=== PATIENT | male | born 1940 | race Caucasian/White ===

== ENCOUNTER 2019-05-26 06:00 | Outpatient (RCR) | payer MEDICARE, OTHER, SELFPAY | END 2019-06-24 23:59 | disposition home or self-care (01) | LOC: MOT 06:00 | PROVIDERS: PCP Family Medicine; Referring Provider Family Medicine; Visit Provider Family Medicine | DX: M19.041 Primary osteoarthritis, right hand (principal) | CPT/HCPCS: 97018; 97110; 97140; 97166 ==

== ENCOUNTER 2019-06-28 | Outpatient (RCR) | payer MEDICARE, OTHER, SELFPAY | END 2019-07-21 | disposition home or self-care (01) | LOC: MOT | PROVIDERS: PCP Family Medicine; Referring Provider Family Medicine; Visit Provider Family Medicine | DX: M19.041 Primary osteoarthritis, right hand (principal) | CPT/HCPCS: 97018; 97022; 97035; 97110; 97140 ==

== ENCOUNTER 2019-08-02 | Outpatient (RCR) | payer MEDICARE, OTHER, SELFPAY | END 2019-08-02 23:00 | disposition home or self-care (01) | LOC: MOT | PROVIDERS: PCP Family Medicine; Referring Provider Family Medicine; Visit Provider Family Medicine | DX: M19.041 Primary osteoarthritis, right hand (principal) | CPT/HCPCS: 97022; 97110; 97140 ==

== ENCOUNTER → 2020-12-04 10:35 | Outpatient (BNVA) | payer MEDICARE, OTHER, SELFPAY | PROVIDERS: PCP Family Medicine; Visit Provider Specialist | DX: Z20.822 Contact with and (suspected) exposure to COVID-19 (principal) | CPT/HCPCS: 87635 ==

== ENCOUNTER 2020-12-08 07:28 | Day surgery (SDC) | payer MEDICARE, OTHER, SELFPAY ==
[2020-12-07 12:56] VITALS: BMI 25.4
[2020-12-08] VITALS (8 sets, daily range): BP systolic 112–145; BP diastolic 58–82; PULSE 52–67; RESP 12–20; TEMP 35.8–36.4; O2SAT 94–100
--- NOTE | 2020-12-08 | XR_ITS ---
WS: [id number] XR ankle RT 2V 18342 REASON FOR EXAM: OR PICS FINDINGS: Prefixation and AP and lateral post fixation images during surgery. Oblique fracture of the distal right fibula extending into the syndesmosis. Widening of the medial an kle joint. Fixation of the fibular fracture with plate and screws. Transverse transfibular/tibial anchor with jewish of normal medial ankle joint space. Surgical appliances and fracture fragments in proper position and alignment. XR/XR ankle RT 2V 79854 IMPRESSION: Fixation of right ankle fracture as above.
--- NOTE | 2020-12-08 | SCC_ITS ---
Procedure Done: Open reduction internal fixation right distal fibula fracture with syndesmotic fixation 116.3 seconds of fluoroscopic guidance, for a cumulative dose of 4.04 mGy, was provided to Dr. Sharpe by the radiology department. C-arm images of the RIGHT ankle were saved for the patient's permanent record. [facility]
--- NOTE | 2020-12-08 07:55 | P.HPUD_ITS ---
Surgery/Procedure H&P Update DATE OF PROCEDURE: December 08, 2020 DATE H&P PERFORMED: 12/04/20 H&P UPDATE INFORMATION: I have reviewed H&P completed within last 30 days, I have examined patient prior to procedure, No changes to prior documentation and H&P is in [facility] [place] on date indicated PREOP DIAGNOSIS: Right bimalleolar ankle fracture PLANNED PROCEDURE: Operation Date: 12/08/20 09:10 Proposed Procedures p ORIF Fibula w/ poss Syndosmotic fixation 88255 44726 S82.841A S93.431A(Right) - Janeth Sharpe MD Related Problem List Diagnoses (1) Closed bimalleolar fracture of right ankle: Qualifiers: Encounter type: initial encounter Qualified Code(s): S82.841A - Displaced bimalleolar fracture of right lower leg, initial encounter for closed fracture (2) Syndesmotic disruption of right ankle: Qualifiers: Encounter type: initial encounter Qualified Code(s): S93.431A - Sprain of tibiofibular ligament of right ankle, initial encounter
[2020-12-08] MEDS: acetaminophen 1,000 MG/100 ML PIGGYBACK 400 MG IV (08:25)
[2020-12-08] MEDS: CELEcoxib 100 mg Capsule 400 MG PO (08:32)
--- NOTE | 2020-12-08 08:47 | ANES.PREANE2 ---
Pre-Anesthetic Assessment Pre-Anesthetic Assessment: Height/Weight: Height 1.75 m Weight 78.018 kg Preop Diagnosis: Right bimalleolar ankle fracture Proposed Procedure: Operation Date: 12/08/20 09:10 Proposed Procedures p ORIF Fibula w/ poss Syndosmotic fixation 35984 20876 S82.841A S93.431A(Right) - Janeth Sharpe MD Familial anesthetic complications: None Was Beta Reginald taken within 24 hours: Yes Was Clonidine taken within 24 hours: N/A Last intake: Intake Last Liquid Date 12/07/20 Last Liquid Time 22:00 Last Solid Date 12/07/20 Last Solid Time 19:00 Social: Social History: No alcohol and No tobacco Exam: Pre-Anes Outpt Exam: alert, oriented x 3, clear to auscultation bilaterally and regular rate & rhythm Airway: Cervical ROM: WNL MP: 3 Dentition: False Anesthetic Plan: ASA status: 3 Anesthesia: General and Regional (specify below) (popliteal) Risk of > 500 ml blood loss (7ml/kg in children): No PFSH Anesthesia PFSH: Medical History Hyperlipidemia Hypertension Peripheral neuropathy Polymyalgia Polyneuropathy Surgical History History of cataract extraction History of tonsillectomy and adenoidectomy Social History Smoking and tobacco status: former smoker Data Anesthesia Cardiac Studies: No Data to Display
--- NOTE | 2020-12-08 08:50 | ANES.PROC ---
Anesthesia Procedures Procedure/Date: 12/08/20 Nerve Block ^: Nerve Block 1: Main Anesthesia: general anesthesia Time Out Performed: Yes Consent: requested by attending/covering physician, from patient, from other, risks and benefits reviewed and patient agrees to proceed Nerve block location: popliteal (R) Anesthesia monitors applied: pulse oximetry, EKG, BP cuff and oxygen Nerve block position: supine Anesthetic Used: ropivicaine 0.5% and with decadron (4 mg) Amount of anesthesia used (mL): 30 Ultrasound used to: recognize landmarks Nerve Stimulator Used?: No Interscalene/Femoral BLK: 4 stimuplex 21 g needle used for position and inplane approach, visualize local anesthetic spread and no vascular puncture identified Injection: neg aspiration of heme and paresthesia +/- Patient Tolerated Procedure: well and no complications Complications: none
[2020-12-08] MEDS: sodium chloride 0.9% 1,000 ML 30 ML IV (09:00)
--- NOTE | 2020-12-08 09:10 | PC.NURSE ---
nerve block done without moderate sedations. pt stated no pain in procedure or with ankle fracture since it got broken
[2020-12-08 10:03] LABS: Basophils % 0.5 %; Eosinophils # 0.2 10^3/uL (0.0-0.8); Eosinophils % 2.4 %; Hematocrit 39.1 % (42.0-52.0); Hemoglobin 13.5 g/dL (11.7-16.6); Lymphocytes # 1.4 10^3/uL (0.8-4.8); Lymphocytes % 16.7 %; Mean Corpuscular HGB Conc 34.5 g/dL (30.0-36.0); Mean Corpuscular Hemoglobin 30.7 pg (28.0-34.0); Mean Corpuscular Volume 88.9 fl (80-94); Mean Platelet Volume 10.9 fL (7.4-10.4); Monocytes # 1.1 10^3/uL (0.2-0.9); Monocytes % 13.2 %; Neutrophils # 5.56 10^3/uL (1.8-7.7); Nucleated Red Blood Cells % 0 %; Platelet Count 275 10^3/cmm (130-400); Red Cell Distribution Width 12.8 % (12.1-15.1); White Blood Count 8.3 10^3/uL (4.0-10.0)
[2020-12-08] MEDS: ceFAZolin 1,000 mg SDV 1000 MG IRRIGATION (10:37)
[2020-12-08 10:40] LABS: Alanine Aminotransferase 20 U/L (0-41); Albumin Level 4.1 g/dL (3.5-5.2); Alkaline Phosphatase 77 IU/L (40-130); Anion Gap 15.3 (5-19); Aspartate Amino Transferase 21 U/L (0-40); Blood Urea Nitrogen 13 mg/dL (8-23); Calcium 9.4 mg/dL (8.5-10.5); Carbon Dioxide 28 mmol/L (22-29); Chloride 92 mmol/L (98-107); Globulin 2.9 g/dL (1.3-4.6); Glucose 101 mg/dL (65-115); Osmolality Calculated 274 mOsm/kg (285-295); Potassium 3.3 mmol/L (3.5-5.1); Sodium 132 mmol/L (136-145); Total Bilirubin 0.6 mg/dL (0.15-1.2)
--- NOTE | 2020-12-08 12:12 | PM.OP ---
Operative Report Date of procedure: December 08, 2020 Pre-op Diagnosis: Right bimalleolar ankle fracture with syndesmotic disruption Post-op diagnosis: same Post-op Findings: Distal right fibular fracture with disruption of the deltoid ligament and syndesmotic disruption Procedure Done: Open reduction internal fixation right distal fibula fracture with syndesmotic fixation Implants: The Bernie 5 hole distal lateral fibular plate with Arthrex tight rope x1 Pathology: none sent Surgeon: Janeth Sharpe Air Duct Mechanic: [facility] operating room technicians Anesthesia: General (Intubated, ASA 3) Estimated blood loss (mL): 20 Tourniquet time (min): 69 Tourniquet time: At 250 mmHg IV fluids (mL): 900 Urine output (mL): 0 Urine output: No Tan Complications: None Findings: Opening of the medial mortise with stress following repair of the distal fibula Condition: stable Disposition: PACU (Then to same-day surgery for discharge to home) Brief History: This 80-year-old gentleman was in his usual state of health when he fell suffering the above injury. He was seen at [facility] and [place]. The patient was found to have a distal fibula fracture with opening of the medial mortise. Therefore, he was felt preoperatively to have a bimalleolar construct to his ankle fracture with syndesmotic disruption a high possibility. The patient was scheduled for the above procedure. Risks and complications were discussed with him. Consents were signed preoperatively. Procedure: Patient was seen in the preoperative holding area and his leg was marked. Patient was brought to the operating theater and placed on the operating room table. After undergoing adequate general intubated anesthesia, ASA 3, the patient's right lower extremity was prepped and draped in usual fashion utilizing DuraPrep. The leg was draped free. Fluoroscopy was used throughout the surgical procedure. We did have a tourniquet high on the right lower extremity. This was elevated to 250 mmHg and total tourniquet time was 69 minutes. Tourniquet elevation followed exsanguination of the leg. A surgical pause was performed. At the time of the surgical pause we identified the site and side of surgery as well as the patient's identity and availability of equipment. We also confirmed appropriate administration of IV antibiotics. Following the above, an incision was made centering over the patient's distal fibula fracture. The incision was continued proximally and distally as necessary to allow access to the fracture and placed the plate. Prior to surgical incision, a plate was chosen based upon fluoroscopic guidance in the position of the fracture. This was the plate we subsequently used. We were able to reduce the fracture anatomically. A Bernie 5 hole distal lateral fibular plate was attached with standard technique. We used locking screws to attach the plate. Once the plate was appropriately attached, fluoroscopy was used to evaluate for opening of the medial mortise. A stress image was obtained which demonstrated the mortise opened with stress. Therefore, the decision was made to place 1 tight rope anchor. This was placed under standard technique. The ankle was held in a reduced position while the tight rope was placed and tightened. Reevaluation with stress view demonstrated the medial mortise no longer opened. At this point, we were ready to address closure. The wound was copiously irrigated and dried. We then closed the wound with 0 Vicryl in the fascial tissues, 2-0 Monocryl in the subcutaneous tissues, and the skin was closed with skin vishal. Sterile dressing was then placed consisting of an OpSite, ABD, sterile soft roll, and an Deshawn wrap. The patient had been issued a cam walker boot at [facility], and this was used postoperatively for immobilization. He is to remain nonweightbearing. The procedure was well tolerated without complication. Tourniquet time was 69 minutes at 250 mmHg. The patient will be discharged home to follow-up in my office as scheduled. Associated Problem List Diagnoses (1) Syndesmotic disruption of right ankle: Qualifiers: Encounter type: initial encounter Qualified Code(s): S93.431A - Sprain of tibiofibular ligament of right ankle, initial encounter (2) Closed bimalleolar fracture of right ankle: Qualifiers: Encounter type: initial encounter Qualified Code(s): S82.841A - Displaced bimalleolar fracture of right lower leg, initial encounter for closed fracture
[2020-12-08] MEDS: fentaNYL 50 mcg/mL INJ 2mL IVP ×2 (12:15→12:20)
[2020-12-08] MEDS: HYDROcodone-acetaminophen 5-325 mg Tablet 1 TAB PO (12:59)
--- NOTE | 2020-12-08 14:29 | ANE.PACU2 ---
Inpatient post-anesthesia follow up: Airway intact: Yes Vital signs: Temperature 96.5 F Pulse Rate 52 Respiratory Rate 17 Blood Pressure 112/71 Pulse Oximetry 95 Oxygen Delivery Me thod Room Air Oxygen Flow Rate Fraction of Inspir ed Oxygen Hydration adequate: Yes Nausea and vomiting: No Pain level: 2 Mental status: Baseline
== END 2020-12-08 13:24 | disposition home or self-care (01) ==
PROVIDERS: PCP Family Medicine; Visit Provider Specialist
PROC: 0QSK04Z Reposition Left Fibula with Internal Fixation Device, Open Approach (ICD-10-PCS; CPT 27828; principal; 2020-12-08 09:00)
DX: S82.841A Displaced bimalleolar fracture of right lower leg, initial encounter for closed fracture (principal); S93.431A Sprain of tibiofibular ligament of right ankle, initial encounter; W01.0XXA Fall on same level from slipping, tripping and stumbling without subsequent striking against object, initial encounter; E78.5 Hyperlipidemia, unspecified; I10 Essential (primary) hypertension; Z87.891 Personal history of nicotine dependence; Z79.82 Long term (current) use of aspirin; Z79.52 Long term (current) use of systemic steroids
CPT/HCPCS: 27814; 36415; 64450; 73600; 76000; 76942; 80053; 85025; 96365; C1713; J0690; J1100; J2405; J2704; J2710; J2795; J3010; J3490; J7030

== ENCOUNTER → 2020-12-25 12:55 | Outpatient (BNVA) | payer MEDICARE, OTHER, SELFPAY | PROVIDERS: PCP Family Medicine; Visit Provider Specialist | DX: S93.431D Sprain of tibiofibular ligament of right ankle, subsequent encounter (principal); S82.841D Displaced bimalleolar fracture of right lower leg, subsequent encounter for closed fracture with routine healing; X58.XXXD Exposure to other specified factors, subsequent encounter | CPT/HCPCS: 73610 ==

== ENCOUNTER → 2021-01-10 10:52 | Outpatient (BNVA) | payer MEDICARE, OTHER, SELFPAY | PROVIDERS: PCP Family Medicine; Visit Provider Specialist | DX: S93.431D Sprain of tibiofibular ligament of right ankle, subsequent encounter (principal); S82.841D Displaced bimalleolar fracture of right lower leg, subsequent encounter for closed fracture with routine healing; X58.XXXD Exposure to other specified factors, subsequent encounter | CPT/HCPCS: 73610; 87070; 87075; 87077; 87184 ==

== ENCOUNTER → 2021-01-22 10:53 | Outpatient (BNVA) | payer MEDICARE, OTHER, SELFPAY | PROVIDERS: PCP Family Medicine; Visit Provider Specialist | DX: S93.431D Sprain of tibiofibular ligament of right ankle, subsequent encounter (principal); S82.841D Displaced bimalleolar fracture of right lower leg, subsequent encounter for closed fracture with routine healing; X58.XXXD Exposure to other specified factors, subsequent encounter | CPT/HCPCS: 73610 ==

== ENCOUNTER 2021-01-24 09:34 | Outpatient (CLI) | payer MEDICARE, OTHER, SELFPAY | END 2021-01-24 09:35 | disposition home or self-care (01) | LOC: WOUND 09:36 | PROVIDERS: PCP Family Medicine; Visit Provider Nurse Practitioner Family | DX: S91.001A Unspecified open wound, right ankle, initial encounter (principal); W19.XXXA Unspecified fall, initial encounter; Z87.891 Personal history of nicotine dependence | CPT/HCPCS: 11042; 87070; 87176; 87205; G0463 ==

== ENCOUNTER 2021-01-31 10:14 | Outpatient (CLI) | payer MEDICARE, OTHER, SELFPAY | END 2021-01-31 10:15 | disposition home or self-care (01) | LOC: WOUND 10:15 | PROVIDERS: PCP Family Medicine; Visit Provider Thoracic Surgery (Cardiothoracic Vascular Surgery) | DX: S91.011A Laceration without foreign body, right ankle, initial encounter (principal); W19.XXXA Unspecified fall, initial encounter; Z87.891 Personal history of nicotine dependence | CPT/HCPCS: 97597 ==

== ENCOUNTER 2021-02-07 13:11 | Outpatient (CLI) | payer MEDICARE, OTHER, SELFPAY | END 2021-02-07 13:12 | disposition home or self-care (01) | LOC: WOUND 13:13 | PROVIDERS: PCP Family Medicine; Visit Provider Thoracic Surgery (Cardiothoracic Vascular Surgery) | DX: S91.041A Puncture wound with foreign body, right ankle, initial encounter (principal); X58.XXXA Exposure to other specified factors, initial encounter; Z87.891 Personal history of nicotine dependence | CPT/HCPCS: 97597 ==

== ENCOUNTER 2021-02-14 09:13 | Outpatient (CLI) | payer MEDICARE, OTHER, SELFPAY | END 2021-02-14 09:14 | disposition home or self-care (01) | LOC: WOUND 09:14 | PROVIDERS: PCP Family Medicine; Visit Provider Nurse Practitioner Family | DX: T81.89XA Other complications of procedures, not elsewhere classified, initial encounter (principal); Y83.8 Other surgical procedures as the cause of abnormal reaction of the patient, or of later complication, without mention of misadventure at the time of the procedure; Z87.891 Personal history of nicotine dependence | CPT/HCPCS: 99212; A6212 ==

== ENCOUNTER → 2021-02-19 11:04 | Outpatient (BNVA) | payer MEDICARE, OTHER, SELFPAY | PROVIDERS: PCP Family Medicine; Visit Provider Specialist | DX: T81.49XA Infection following a procedure, other surgical site, initial encounter (principal); M77.31 Calcaneal spur, right foot | CPT/HCPCS: 73610 ==

== ENCOUNTER 2021-02-28 08:53 | Outpatient (CLI) | payer MEDICARE, OTHER, SELFPAY | END 2021-02-28 08:54 | disposition home or self-care (01) | LOC: WOUND 08:55 | PROVIDERS: PCP Family Medicine; Visit Provider Thoracic Surgery (Cardiothoracic Vascular Surgery) | DX: Z09 Encounter for follow-up examination after completed treatment for conditions other than malignant neoplasm (principal); Z87.891 Personal history of nicotine dependence; S93.431A Sprain of tibiofibular ligament of right ankle, initial encounter; S82.841A Displaced bimalleolar fracture of right lower leg, initial encounter for closed fracture; T84.84XA Pain due to internal orthopedic prosthetic devices, implants and grafts, initial encounter; L53.9 Erythematous condition, unspecified; T81.49XA Infection following a procedure, other surgical site, initial encounter; X58.XXXA Exposure to other specified factors, initial encounter | CPT/HCPCS: 36415; 73610; 84550; 85025; 85651; 86140; 87635; 99212 ==

== ENCOUNTER 2021-02-28 10:41 | Outpatient (CLI) | payer MEDICARE, OTHER, SELFPAY ==
[2021-02-28 11:10] LABS: Basophils # 0.1 10^3/uL (0.0-0.1); Basophils % 0.8 %; Eosinophils # 0.2 10^3/uL (0.0-0.8); Eosinophils % 1.7 %; Hematocrit 44.2 % (42.0-52.0); Hemoglobin 14.5 g/dL (11.7-16.6); Lymphocytes # 1.3 10^3/uL (0.8-4.8); Mean Corpuscular HGB Conc 32.8 g/dL (30.0-36.0); Mean Corpuscular Hemoglobin 29.5 pg (28.0-34.0); Mean Platelet Volume 9.1 fL (7.4-10.4); Monocytes # 0.6 10^3/uL (0.2-0.9); Monocytes % 6.5 %; Neutrophils # 6.71 10^3/uL (1.8-7.7); Neutrophils % 75.4 %; Nucleated Red Blood Cells % 0 %; Platelet Count 371 10^3/cmm (130-400); Red Blood Count 4.91 10^6/uL (4.1-5.3); Red Cell Distribution Width 12.5 % (12.1-15.1); White Blood Count 8.9 10^3/uL (4.0-10.0)
[2021-02-28 11:26] LABS: Erythrocyte Sedimentation Rate 22 mm/hr (0-10)
[2021-02-28 11:32] LABS: C Reactive Protein 24.6 mg/L (0.0-4.9); Uric Acid 4.8 mg/dL (3.4-7.0)
== END 2021-02-28 10:42 | disposition home or self-care (01) ==
LOC: LAB 10:50
PROVIDERS: PCP Family Medicine; Visit Provider Podiatrist Foot & Ankle Surgery
DX: S82.841A Displaced bimalleolar fracture of right lower leg, initial encounter for closed fracture (principal); S93.431A Sprain of tibiofibular ligament of right ankle, initial encounter; T81.49XA Infection following a procedure, other surgical site, initial encounter; X58.XXXA Exposure to other specified factors, initial encounter
CPT/HCPCS: 36415; 84550; 85025; 85651; 86140

== ENCOUNTER 2021-03-02 09:18 | Day surgery (SDC) | payer MEDICARE, OTHER, SELFPAY ==
[2021-03-01 12:33] VITALS: BMI 25.1
[2021-03-02] VITALS (11 sets, daily range): BP systolic 135–161; BP diastolic 59–103; PULSE 54–75; RESP 16–20; TEMP 36.1–36.4; O2SAT 96–100
--- NOTE | 2021-03-02 07:34 | ANES.PREANE2 ---
Pre-Anesthetic Assessment Pre-Anesthetic Assessment: Height/Weight: Height 1.75 m Weight 77.111 kg Preop Diagnosis: Right bimalleolar ankle fracture with syndesmotic disruption Proposed Procedure: Operation Date: 03/02/21 10:55 Proposed Procedures p Hardware Removal right ankle 82261, t84.84xa/s82.841a/t81.49xa(Right) - Gray Alicia DPM Familial anesthetic complications: None Was Beta Reginald taken within 24 hours: Yes Was Clonidine taken within 24 hours: N/A Social: Social History: No alcohol and No tobacco Exam: Pre-Anes Outpt Exam: alert, oriented x 3, clear to auscultation bilaterally and regular rate & rhythm Airway: Submandibular: WNL Cervical ROM: WNL MP: 1 Dentition: Full History/ROS: No significant complaints Pulmonary: Pulmonary: None reported CV/HEM: CV/HEM: HTN Comments: DLD : : None reported Hepatic: Hepatic: None reported GI: GI: None reported Metabolic: Metabolic: None reported Musc/skel: Comments: Polymyalgia 12/14 hardware placed for acute bimalleolar fx now concern for infection Neuropsych: Comments: Peripheral neuropathy Anesthetic Plan: ASA status: 2 Anesthesia: General Risk of > 500 ml blood loss (7ml/kg in children): No PFSH Anesthesia PFSH: Medical History Hyperlipidemia Hypertension Peripheral neuropathy Polymyalgia Polyneuropathy Surgical History History of cataract extraction History of tonsillectomy and adenoidectomy Data Anesthesia Cardiac Studies: No Data to Display
[2021-03-02] MEDS: sodium chloride 0.9% 1,000 ML 30 ML IV (10:22)
--- NOTE | 2021-03-02 11:10 | W.PM.OPSUD ---
Surgery/Procedure H&P Update DATE OF PROCEDURE: March 02, 2021 DATE H&P PERFORMED: 02/28/21 H&P UPDATE INFORMATION: I have reviewed H&P completed within last 30 days, I have examined patient prior to procedure, No changes to prior documentation and H&P is in [facility] EMR on date indicated PREOP DIAGNOSIS: Painful hardware right ankle PLANNED PROCEDURE: Operation Date: 03/02/21 10:55 Proposed Procedures p Hardware Removal right ankle 32745, t84.84xa/s82.841a/t81.49xa(Right) - Gray Alicia DPM PHYSICAL EXAM: alert and clear to auscultation bilaterally
--- NOTE | 2021-03-02 11:38 | XR_ITS ---
WS: [id number] Right ankle, 3 views, 03/02/2021 Clinical Data: post op Comparison: Right ankle, 02/28/2021. Findings: The lateral plate and screws on the distal fibula have been removed. There is removal of the cable be tween the tibia and fibula. There are surgical vishal overlying the distal right fibula and the med ial malleolus. There is a boot supporting the ankle. XR/XR ankle RT min 3V* [id number] Impression: Removal of internal fixation devices from the right ankle.
[2021-03-02] MEDS: lidocaine 1% INJ 20 mL INJECTION (12:15)
[2021-03-02] MEDS: ondansetron 2 mg/ML SDV 2 mL 4 MG IVP (12:42)
[2021-03-02 12:43] LABS: Adenovirus Not Detected (NOT DETECT); Chlamydia Pneumoniae Not Detected (NOT DETECT); Coronavirus 229E,HKU1,NL63,OC4 Not Detected (NOT DETECT); Human Metapneumovirus Not Detected (NOT DETECT); Human Rhinovirus/Enterovirus Not Detected (NOT DETECT); Influenza A Not Detected (NOT DETECT); Influenza A H1 Not Detected (NOT DETECT); Influenza A H1-2009 Not Detected (NOT DETECT); Influenza A H3 Not Detected (NOT DETECT); Influenza B Not Detected (NOT DETECT); Mycoplasma Pneumoniae Not Detected (NOT DETECT); Parainfluenza Virus Type 1 Not Detected (NOT DETECT); Parainfluenza Virus Type 2 Not Detected (NOT DETECT); Parainfluenza Virus Type 3 Not Detected (NOT DETECT); Parainfluenza Virus Type 4 Not Detected (NOT DETECT); Respiratory Syncytial Virus A Not Detected (NOT DETECT); Respiratory Syncytial Virus B Not Detected (NOT DETECT); SARS-COV-2 Not Detected (NOT DETECT)
[2021-03-02] MEDS: fentaNYL 50 mcg/mL INJ 2mL IVP (12:54)
[2021-03-02] MEDS: HYDROmorphone 1 mg/mL INJ 1 mL 0.5 MG IVP (13:18)
[2021-03-02] MEDS: HYDROcodone-acetaminophen 5-325 mg Tablet 1 TAB PO (13:18)
--- NOTE | 2021-03-02 14:08 | ANE.PACU2 ---
Inpatient post-anesthesia follow up: Airway intact: Yes Vital signs: Temperature 97 F Pulse Rate 59 Respiratory Rate 18 Blood Pressure 135/98 Pulse Oximetry 99 Oxygen Delivery Me thod Room Air Oxygen Flow Rate 10 Fraction of Inspir ed Oxygen Hydration adequate: Yes Nausea and vomiting: No Pain level: 5 Mental status: Baseline Additional Comments: Poorly controlled pain. Patient advised not to drive while in boot. Patient feels he needs to drive. I advised him that he should make alternate arrangements.
--- NOTE | 2021-03-04 09:14 | P.OP_ITS ---
Operative Report Date of procedure: March 02, 2021 Pre-op Diagnosis: Painful hardware right ankle Post-op diagnosis: same Post-op Findings: Some purulence at the lateral incision Procedure Done: Deep hardware removal right ankle Implants: 2-0 Vicryl, 3-0 Vicryl, skin vishal Specimens removed/disposition: 8 screws, 1 plate and tight rope suture buttons. Transsyndesmotic tight rope and button sent to microbiology for Gram stain and culture Pathology: none sent Surgeon: Gray Alicia D.P.M. Director Data Processing: Fidel Anesthesia: General Estimated blood loss: 10 Tourniquet time: See intraoperative documentation IV fluids: 0 Urine output: 0 Complications: None Findings: Some purulence at the lateral incision and no devitalized bone appreciated. Well-healed fracture site, Condition: stable Disposition: PACU Brief History: Patient had redness, swelling and pain at the right ankle with concern for possible infection. Patient requesting hardware removal at next available opportunity. Can be done outpatient 03/02/2021. Risks include pain, bleeding, numbness, infection, need for further wound care modalities, antibiotic therapies, further surgical debridement and medical management of infection. Patient is agreeable wishes to proceed. Procedure: Under mild sedation the patient was brought to the operating room and remained on the gurney in supine position. A timeout was performed. Anesthesia was then administered by the anesthesia service. Local anesthesia injected by myself consisting of 20 cc of one-to-one mixture 1% lidocaine 0.5 sent Marcaine plain and a right ankle block fashion. Well-padded pneumatic tourniquet applied high calf to the right lower extremity. Right lower extremity was then scrubbed, prepped and draped utilizing normal aseptic technique. Right foot was elevated and tourniquet inflated to 250 mmHg. No Esmarch was utilized. Over the previous cicatrix both medially and laterally at the right ankle #15 blade was utilized to perform a skin incision with dissection carried down through subcutaneous tissue down to layer of hardware utilizing blunt and sharp technique. Care was taken to retract and preserve neurovascular and tendinous structures. All bleeders were ligated and cauterized as necessary. Total of 8 screws and a anatomic fibular plate was removed laterally and passed from operative field. Suture button with transsyndesmotic tight rope was sent to microbiology for Gram stain and culture. Purulence was encountered laterally at the incision after copious amounts of sterile saline solution is able to visualize the fracture site appear to be well-healed without instability, syndesmosis intact with cotton hook test, after irrigating there is no further purulence or devitalized tissue appreciated. Incision was closed in a layered fashion with 2-0 Vicryl, 3-0 Vicryl and skin vishal and dressed with Adaptic, sterile 4 x 4's, Kerlix, Deshawn wrap and a cam boot. Tourniquet was deflated and a prompt hyperemic response was noted to the distal digits of the right foot. Patient tolerated the procedure and anesthesia well and was transferred to the PACU with vital signs stable vascular status intact. Following a period of postoperative monitoring he will be discharged home. He is currently taking Augmentin prescribed by his primary care physician. Will continue this and may adjust pending culture and sensitivity of hardware and removed.
== END 2021-03-02 14:23 | disposition home or self-care (01) ==
PROVIDERS: PCP Family Medicine; Visit Provider Podiatrist Foot & Ankle Surgery
PROC: (CPT 20680; principal; 2021-03-02 10:45)
DX: T84.84XA Pain due to internal orthopedic prosthetic devices, implants and grafts, initial encounter (principal); I10 Essential (primary) hypertension; M19.90 Unspecified osteoarthritis, unspecified site; M35.3 Polymyalgia rheumatica; E78.5 Hyperlipidemia, unspecified; Z79.82 Long term (current) use of aspirin
CPT/HCPCS: 20680; 73610; 87070; 87077; 87176; 87186; 87205; 87635; 96374; 96375; J0690; J1170; J2405; J2704; J3010; J3490; J7030

== ENCOUNTER 2021-03-23 14:02 | Outpatient (CLI) | payer MEDICARE, OTHER, SELFPAY | END 2021-03-23 14:03 | disposition home or self-care (01) | LOC: SPT 14:03 | PROVIDERS: PCP Family Medicine; Visit Provider Podiatrist Foot & Ankle Surgery | DX: Z46.89 Encounter for fitting and adjustment of other specified devices (principal); M25.571 Pain in right ankle and joints of right foot | CPT/HCPCS: 97760; L4397 ==

== ENCOUNTER 2021-04-05 09:45 | Outpatient (RCR) | payer MEDICARE, OTHER, SELFPAY | END 2021-04-17 23:59 | disposition home or self-care (01) | LOC: MPT 09:45 | PROVIDERS: PCP Family Medicine; Referring Provider Podiatrist Foot & Ankle Surgery; Visit Provider Podiatrist Foot & Ankle Surgery | DX: M25.571 Pain in right ankle and joints of right foot (principal); Z98.890 Other specified postprocedural states | CPT/HCPCS: 97110; 97161 ==